=== PATIENT | female | born 1950 | race Two or more races ===

== ENCOUNTER 2021-09-07 12:42 | Outpatient (CLI) | payer MEDICARE, OTHER | END 2021-09-07 23:59 | disposition home or self-care (01) | LOC: WOU 12:42 | PROVIDERS: ATTEND Podiatrist Foot & Ankle Surgery | DX: M19.171 Post-traumatic osteoarthritis, right ankle and foot (principal); R60.0 Localized edema; E66.01 Morbid (severe) obesity due to excess calories; Z68.41 Body mass index [BMI] 40.0-44.9, adult; M79.672 Pain in left foot; M79.671 Pain in right foot; Z79.82 Long term (current) use of aspirin | CPT/HCPCS: 73630 ×2; G0463 ==

== ENCOUNTER 2022-06-12 12:32 | Emergency (ER) | payer MEDICARE, OTHER ==
[~2022-06-12] VITALS: Ht 157.5 cm; Wt 107.0 kg
--- NOTE | 2022-06-12 13:05 | NUR ---
PT IN BED 6, BREATHING IS EVEN AND UNLABORED ON ARRIVAL. C/O IRREGULAR EKG FROM CARDIOLOGISTS OFFICE ON ARRIVAL NO IRREGULAR HEART RATE NOTED ON EKG. EKG DONE ON ARRIVAL SR. PT STATES THAT LAST NIGHT SHE FELT FAINT HR IN THE 130'S+ CURRENT HR 75. NO S/S OF DISTRESS ON ROOM AIR IN HIGH FOWLERS BED LOCKED IN LOWEST POSTION. CONNECTED TO BEDSIDE MONITOR FOR HEART MONITORING AND SPO2.
--- NOTE | 2022-06-12 13:08 | NUR ---
LAC 20G STARTED BLOOD DRAWN AND SENT TO LAB.
[2022-06-12 13:12] LABS: BASOPHILS % (AUTO) 0.6 % (0.0-2.0); EOSINOPHILS % (AUTO) 1.3 % (0.0-6.0); HEMATOCRIT 44 % (33-45); LYMPHOCYTES # (AUTO) 2.4 K/uL (0.8-4.8); LYMPHOCYTES % (AUTO) 32.3 % (20.0-44.0); MEAN CORPUSCULAR HGB CONC 32 g/dl (31.0-36.0); MEAN CORPUSCULAR VOLUME 91 fL (82-100); MONOCYTES # (AUTO) 0.5 K/uL (0.1-1.30); MONOCYTES % (AUTO) 7.1 % (2.0-12.0); NEUTROPHILS # (AUTO) 4.4 K/uL (1.8-8.9); NEUTROPHILS % (AUTO) 58.7 % (43.0-81.0); PLATELET COUNT (AUTO) 213 K/uL (150-450); RED BLOOD CELL COUNT(AUTO) 4.81 MIL/uL (4.0-5.2); WHITE BLOOD COUNT (AUTO) 7.5 K/uL (4.3-11.0)
[2022-06-12 13:29] LABS: ALANINE AMINOTRANSFERASE 144 U/L (12-78); ALBUMIN 3.8 g/dL (3.4-5.0); ALKALINE PHOSPHATASE 104 U/L (46-116); ASPARTATE AMINOTRANSFERASE 95 U/L (15-37); BILIRUBIN,DIRECT 0.1 mg/dL (0.0-0.2); BILIRUBIN,TOTAL 0.5 mg/dL (0.2-1.0); CALCIUM, SERUM 9.4 mg/dL (8.5-10.1); CARBON DIOXIDE 27 mmol/L (21-32); CHLORIDE 107 mmol/L (98-107); CREATININE 0.9 mg/dL (0.6-1.3); GLUCOSE 135 mg/dL (74-106); POTASSIUM 4.2 mmol/L (3.5-5.1); SODIUM SERUM 142 mmol/L (136-145); TOTAL PROTEIN, SERUM 6.6 g/dL (6.4-8.2); UREA NITROGEN, BLOOD 22 mg/dL (7-18)
[2022-06-12 15:23] VITALS: BP 96/76
== END 2022-06-12 14:20 | disposition left against medical advice (07) ==
LOC: ER 12:36
DX: R00.2 Palpitations (principal); I10 Essential (primary) hypertension; Z60.2 Problems related to living alone
CPT/HCPCS: 36415; 80048-TC; 80076-TC; 84484-TC; 85025-TC